=== PATIENT | female | born 1990 | race Caucasian/White ===

== ENCOUNTER 2017-08-29 02:00 | Emergency (ER) | payer MEDICAID ==
[~2017-08-29] VITALS: Ht 162.6 cm; Wt 81.6 kg
[2017-08-29 02:13] VITALS: Ht 162.6 cm; Wt 81.6 kg
[2017-08-29 03:40] VITALS: BP 118/68
== END 2017-08-29 03:40 | disposition home or self-care (01) ==
LOC: ED 02:00
DX: J11.1 Influenza due to unidentified influenza virus with other respiratory manifestations (principal)
CPT/HCPCS: J1885

== ENCOUNTER 2017-09-02 08:59 | Emergency (ER) | payer MEDICAID ==
[2017-09-02 11:17] LABS: BASOPHIL % 0.8 % (0-2); PLATELET COUNT 239 x10^3mcL (130-400); RED CELL DISTRIBUTION WIDTH 13.6 % (11.5-14.5)
[2017-09-02 11:29] LABS: CALCIUM 8.5 mg/dL (8.5-10.1); CARBON DIOXIDE 27.8 mmol/L (21-32); CHLORIDE SERUM 104 mmol/L (98-107); CREATININE SERUM 0.7 mg/dL (0.6-1.0); GFR1 > 60 mL/min; GLUCOSE SERUM 94 mg/dL (74-106); POTASSIUM SERUM 3.9 mmol/L (3.5-5.1); SODIUM SERUM 140 mmol/L (136-145)
[2017-09-02 11:33] LABS: ALBUMIN 3.6 g/dL (3.4-5.0); ALKALINE PHOSPHATASE 79 U/L (46-116); ALT/SGPT 19 U/L (14-59); AST/SGOT 15 U/L (15-37); BILIRUBIN TOTAL 0.9 mg/dL (0.20-1.00); TOTAL PROTEIN, SERUM 7.5 g/dL (6.4-8.2)
[2017-09-02 13:50] VITALS: BP 110/67
== END 2017-09-02 13:50 | disposition home or self-care (01) ==
LOC: ED 08:59
PROVIDERS: Emergency Medicine
DX: R42 Dizziness and giddiness (principal); R11.2 Nausea with vomiting, unspecified; R51 Headache; R20.2 Paresthesia of skin
CPT/HCPCS: 36415; J8597; Q0162

== ENCOUNTER 2017-09-20 18:44 | Emergency (ER) | payer MEDICAID ==
[~2017-09-20] VITALS: Ht 162.6 cm; Wt 84.4 kg
[2017-09-20 19:09] VITALS: BP 137/95; Ht 162.6 cm; Wt 84.4 kg
== END 2017-09-20 20:09 | disposition left against medical advice (07) ==
LOC: ED 18:44
DX: Z53.21 Procedure and treatment not carried out due to patient leaving prior to being seen by health care provider (principal)
CPT/HCPCS: 82962

== ENCOUNTER 2017-09-27 08:28 | Emergency (ER) | payer MEDICAID ==
[~2017-09-27] VITALS: Ht 160 cm; Wt 84.5 kg
[2017-09-27 08:30] VITALS: BP 114/73
== END 2017-09-27 09:35 | disposition home or self-care (01) ==
LOC: ED 08:28
DX: R42 Dizziness and giddiness (principal)

== ENCOUNTER 2017-10-29 09:41 | Emergency (ER) | payer MEDICAID ==
[~2017-10-29] VITALS: Ht 162.6 cm; Wt 87.5 kg
[2017-10-29 09:49] VITALS: BP 128/83; Ht 162.6 cm; Wt 87.5 kg
== END 2017-10-29 11:45 | disposition home or self-care (01) ==
LOC: ED 09:41
DX: H66.91 Otitis media, unspecified, right ear (principal)

== ENCOUNTER 2018-02-03 18:35 | Inpatient (IN) | payer MEDICAID ==
[~2018-02-03] VITALS: Ht 162.6 cm; Wt 91.6 kg
[2018-02-03 21:30] LABS: BASOPHIL % 0.8 % (0-2); PLATELET COUNT 238 x10^3mcL (130-400); RED CELL DISTRIBUTION WIDTH 13.3 % (11.5-14.5)
[2018-02-03 21:44] LABS: CHLORIDE SERUM 106 mmol/L (98-107); POTASSIUM SERUM 3.9 mmol/L (3.5-5.1); SODIUM SERUM 140 mmol/L (136-145)
[2018-02-03 21:56] LABS: ALBUMIN 3.7 g/dL (3.4-5.0); ALKALINE PHOSPHATASE 122 U/L (46-116); ALT/SGPT 23 U/L (14-59); AMYLASE 82 U/L (25-115); AST/SGOT 19 U/L (15-37); BILIRUBIN TOTAL 0.76 mg/dL (0.20-1.00); CALCIUM 8.7 mg/dL (8.5-10.1); CARBON DIOXIDE 26.6 mmol/L (21-32); CREATININE SERUM 0.8 mg/dL (0.6-1.0); GFR1 > 60 mL/min; GLUCOSE SERUM 95 mg/dL (74-106); LIPASE 142 IU/L (73-393); TOTAL PROTEIN, SERUM 7.1 g/dL (6.4-8.2)
[2018-02-03 23:32] LABS: MAGNESIUM 2.2 mg/dL (1.8-2.4)
[2018-02-03 23:34] VITALS: BP 117/77
[2018-02-03 23:41] LABS: T3 TOTAL 1.19 ng/mL
[2018-02-03 23:42] LABS: FREE T4 0.89 ng/dL (0.76-1.46); FREE THYROXINE INDEX 2.2 ug/dL (1.4-4.5)
[2018-02-03 23:44] VITALS: Ht 162.6 cm; Wt 91.6 kg
[2018-02-04 00:49] LABS: microscopic required? NO
[2018-02-04 01:28] LABS: UA SPECIFIC GRAVITY 1.015 (1.005-1.035); urine erythrocyte NEGATIVE (NEGATIVE)
[2018-02-04 01:35] LABS: AMPHETAMINE QUAL UR NONE DETECTED (See below)
[2018-02-04 05:02] LABS: CHOLESTEROL/HDL RATIO 3.2
[2018-02-04 05:33] VITALS: BP 101/65
[2018-02-04 06:31] LABS: BASOPHIL % 0.4 % (0-2); PLATELET COUNT 196 x10^3mcL (130-400); RED CELL DISTRIBUTION WIDTH 13.2 % (11.5-14.5)
[2018-02-04 06:32] LABS: CALCIUM 7.9 mg/dL (8.5-10.1); CARBON DIOXIDE 25.9 mmol/L (21-32); CHLORIDE SERUM 107 mmol/L (98-107); CREATININE SERUM 0.7 mg/dL (0.6-1.0); GFR1 > 60 mL/min; GLUCOSE SERUM 87 mg/dL (74-106); POTASSIUM SERUM 3.7 mmol/L (3.5-5.1); SODIUM SERUM 141 mmol/L (136-145)
[2018-02-04 09:55] VITALS: BP 125/77
[2018-02-04 14:12] VITALS: BP 112/72
[2018-02-04 17:37] VITALS: BP 109/73
[2018-02-04 21:22] VITALS: BP 105/57
[2018-02-05 05:34] VITALS: BP 100/63
[2018-02-05 08:55] VITALS: BP 107/71
[2018-02-05] MEDS ORDERED: COLACE100 MG PO (09:15)
[2018-02-05] MEDS ORDERED: NORCO1 TA2 PO (09:15)
[2018-02-05 10:33] LABS: BASOPHIL % 0.2 % (0-2); PLATELET COUNT 197 x10^3mcL (130-400); RED CELL DISTRIBUTION WIDTH 13.7 % (11.5-14.5)
[2018-02-05 10:35] LABS: CARBON DIOXIDE 27.2 mmol/L (21-32); CHLORIDE SERUM 109 mmol/L (98-107); CREATININE SERUM 0.7 mg/dL (0.6-1.0); GFR1 > 60 mL/min; GLUCOSE SERUM 89 mg/dL (74-106); MAGNESIUM 2.1 mg/dL (1.8-2.4); PHOSPHOROUS 2.6 mg/dL (2.5-4.9); SODIUM SERUM 141 mmol/L (136-145)
[2018-02-05 14:00] VITALS: BP 111/66
[2018-02-05] MEDS ORDERED: KEFLEX500 M1 PO (14:07)
[2018-02-05 14:11] VITALS: BP 111/66
== END 2018-02-05 14:54 | disposition home or self-care (01) | DRG 263 ==
LOC: ED 18:35 → DU 23:12
PROVIDERS: Emergency Medicine; General Practice; Internal Medicine; Surgery
PROC: 0FT44ZZ Resection of Gallbladder, Percutaneous Endoscopic Approach (ICD-10-PCS; principal; 2018-02-04 10:00)
DX: K80.70 Calculus of gallbladder and bile duct without cholecystitis without obstruction (principal); E02 Subclinical iodine-deficiency hypothyroidism; K52.9 Noninfective gastroenteritis and colitis, unspecified; E66.9 Obesity, unspecified; Z68.35 Body mass index [BMI] 35.0-35.9, adult
CPT/HCPCS: 83880; 84439; 94150; C9113; J0690; J1170; J1644; J2270; J2405; J2543; J2550; J2704; J2710; J2765; J3010; J3490; J7030; J7042; J7120; Q0092

== ENCOUNTER 2018-08-24 08:01 | Emergency (ER) | payer MEDICAID ==
[~2018-08-24] VITALS: Ht 162.6 cm; Wt 82.6 kg
[~2018-08-24 08:01] MED LIST: COLACE100 MG PO; KEFLEX500 M1 PO; NORCO1 TA2 PO
[2018-08-24 08:09] VITALS: Ht 162.6 cm; Wt 82.6 kg
[2018-08-24 10:10] VITALS: BP 112/59
== END 2018-08-24 10:12 | disposition home or self-care (01) ==
LOC: ED 08:01
DX: O26.892 Other specified pregnancy related conditions, second trimester (principal); J20.9 Acute bronchitis, unspecified; Z3A.25 25 weeks gestation of pregnancy; Z88.5 Allergy status to narcotic agent; Z98.890 Other specified postprocedural states
CPT/HCPCS: 87804

== ENCOUNTER 2018-12-07 06:49 | Emergency (ER) | payer MEDICAID ==
[~2018-12-07] VITALS: Ht 162.6 cm; Wt 78.0 kg
[2018-12-07 06:52] VITALS: Ht 162.6 cm; Wt 78.0 kg
[2018-12-07 08:11] LABS: BASOPHIL % 0.1 % (0-2); PLATELET COUNT 283 x10^3mcL (130-400); RED CELL DISTRIBUTION WIDTH 13.9 % (11.5-14.5)
[2018-12-07 08:36] LABS: CALCIUM 8.6 mg/dL (8.5-10.1); CARBON DIOXIDE 22.8 mmol/L (21-32); CHLORIDE SERUM 103 mmol/L (98-107); CREATININE SERUM 0.8 mg/dL (0.6-1.0); GFR1 > 60 mL/min; GLUCOSE SERUM 105 mg/dL (74-106); POTASSIUM SERUM 3.5 mmol/L (3.5-5.1); SODIUM SERUM 135 mmol/L (136-145)
[2018-12-07 08:41] LABS: ALKALINE PHOSPHATASE 160 U/L (46-116); ALT/SGPT 58 U/L (14-59); AST/SGOT 62 U/L (15-37); BILIRUBIN TOTAL 1.2 mg/dL (0.20-1.00); TOTAL PROTEIN, SERUM 7.5 g/dL (6.4-8.2)
[2018-12-07 08:48] LABS: ALBUMIN 3.1 g/dL (3.4-5.0)
[2018-12-07 09:04] LABS: UA SPECIFIC GRAVITY 1.015 (1.005-1.035); microscopic required? YES; urine erythrocyte NEGATIVE (NEGATIVE)
[2018-12-07 11:06] VITALS: BP 112/67
== END 2018-12-07 11:06 | disposition home or self-care (01) ==
LOC: ED 06:49
PROVIDERS: Emergency Medicine
DX: N61.0 Mastitis without abscess (principal); Z88.5 Allergy status to narcotic agent; Z98.890 Other specified postprocedural states
CPT/HCPCS: 76641; J0696; J2405; J7030

== ENCOUNTER 2019-08-07 08:59 | Emergency (ER) | payer MEDICAID ==
[~2019-08-07] VITALS: Ht 165.1 cm; Wt 90.0 kg
[2019-08-07 09:24] VITALS: BP 116/74; Ht 165.1 cm; Wt 90.0 kg
== END 2019-08-07 10:38 | disposition home or self-care (01) ==
LOC: ED 08:59
DX: J11.1 Influenza due to unidentified influenza virus with other respiratory manifestations (principal); Z88.5 Allergy status to narcotic agent; Z98.890 Other specified postprocedural states

== ENCOUNTER 2020-01-05 09:31 | Emergency (ER) | payer OTHER ==
[~2020-01-05] VITALS: Ht 162.6 cm; Wt 94.3 kg
[2020-01-05 10:05] VITALS: Ht 162.6 cm; Wt 94.3 kg
[2020-01-05 10:50] VITALS: BP 111/57
== END 2020-01-05 10:50 | disposition home or self-care (01) ==
LOC: ED 09:31
DX: S41.152A Open bite of left upper arm, initial encounter (principal); Z98.82 Breast implant status; Z98.890 Other specified postprocedural states; Z90.49 Acquired absence of other specified parts of digestive tract; W57.XXXA Bitten or stung by nonvenomous insect and other nonvenomous arthropods, initial encounter; Y93.89 Activity, other specified; Y92.89 Other specified places as the place of occurrence of the external cause; Y99.8 Other external cause status

== ENCOUNTER 2020-03-15 08:50 | Emergency (ER) | payer OTHER ==
[~2020-03-15] VITALS: Ht 162.6 cm; Wt 96.2 kg
[2020-03-15 08:53] VITALS: Ht 162.6 cm; Wt 96.2 kg
[2020-03-15 10:07] VITALS: BP 120/75
== END 2020-03-15 10:07 | disposition home or self-care (01) ==
LOC: ED 08:50
DX: S93.602A Unspecified sprain of left foot, initial encounter (principal); X58.XXXA Exposure to other specified factors, initial encounter; Y93.89 Activity, other specified; Y92.89 Other specified places as the place of occurrence of the external cause; Y99.8 Other external cause status
CPT/HCPCS: Q0092